=== PATIENT | female | born 1990 | race Hispanic/Latino ===

== ENCOUNTER 2017-01-19 07:52 | Day surgery (SDC) | payer OTHER ==
[2017-01-19 08:08] VITALS: BMI 23.7
[2017-01-19 08:35] VITALS: RESP 18
[2017-01-19 09:22] LABS: HEMATOCRIT 38.1 % (34.0-47.0); MEAN CELL VOLUME 87.5 fl (81.0-99.0); MEAN CORPUSCULAR HEMOGLOBIN 29.1 pg (27.0-31.0); MEAN CORPUSCULAR HGB CONC 33.3 g/dL (33.0-37.0); RED CELL DISTRIBUTION WIDTH 13.1 % (11.5-14.5); WHITE BLOOD COUNT 5.6 K/uL (4.8-10.8)
[2017-01-19] MEDS ORDERED: Bupivacaine 0.5% Inj(30mL) ONE (10:09)
[2017-01-19] MEDS ORDERED: Sterile Water 10 ML IV ONE (10:09)
[2017-01-19] MEDS ORDERED: Neostigmine Methylsulfate 3mg/3ml Syringe IV ONE (10:14)
[2017-01-19] MEDS ORDERED: Neostigmine Methylsulfate 2 MG/2 ML ML IV ONE (10:14)
[2017-01-19] MEDS ORDERED: Propofol 10 mg/ml Inj (20 ML) ONE ×2 (10:14→12:28)
[2017-01-19] MEDS ORDERED: Midazolam 2 MG/2 ML VIAL ONE (10:14)
[2017-01-19] MEDS ORDERED: Succinylcholine 200 mg/10 ml Inj IV ONE (10:14)
[2017-01-19] MEDS ORDERED: ePHEDrine 50 mg/ml Inj ONE (10:14)
[2017-01-19] MEDS ORDERED: Rocuronium 10 mg/ml (5 ml) ONE (10:14)
[2017-01-19] MEDS ORDERED: Lactated Ringer's 1,000 ML IV ONE ×2 (10:45→10:50)
[2017-01-19] MEDS ORDERED: Dexamethasone 4 mg/1 ml ONE (11:09)
[2017-01-19] MEDS ORDERED: Desflurane Inhalation Anesthetic Liq (240 ml) ONE (11:51)
[2017-01-19] MEDS ORDERED: HYDROmorphone 0.5 mg/0.5 ml ISec ONE (13:04)
[2017-01-19] MEDS ORDERED: Dexamethasone 4 mg/1 ml IVP PRN (14:14)
[2017-01-19] MEDS ORDERED: Lactated Ringer's 1,000 ML IV SCH (14:14)
[2017-01-19] MEDS ORDERED: Oxycodone/Acetaminophen 5/325 mg Tab PO PRN (14:14)
[2017-01-19] MEDS ORDERED: HYDROmorphone 0.5 mg/0.5 ml ISec IVP PRN (14:14)
[2017-01-19 15:05] VITALS: O2SAT 95
[2017-01-19] MEDS ORDERED: Oxycodone/Acetaminophen 5/325 mg Tab PO ONE (16:58)
[2017-01-19 17:42] VITALS: BP 111/61; PULSE 68; TEMP 97.8
--- NOTE | 2017-01-25 08:36 | OP ---
PROCEDURE DATE: 01/19/2017 SURGEON: Jamar Metz MD. OFFICE MACHINE INSTALLER: JONATHAN Lazo. PREOPERATIVE DIAGNOSES: Dysmenorrhea, dyspareunia, pelvic pain, pelvic endometriosis. POSTOPERATIVE DIAGNOSES: Dysmenorrhea, dyspareunia, pelvic pain; recurrent pelvic endometriosis, stage II/III. PROCEDURES PERFORMED: Cystoscopy with bilateral ureteral catheterization, retrograde injection of IC-Green into the right and left ureter, diagnostic hysteroscopy, laparoscopy, robotic da Walker excision of endometriosis. Bilateral ureterolysis. COMPLICATIONS: None. SAMPLES: Multiple samples of peritoneum containing endometriosis sent to pathology. DRAINS: Prater catheter. ESTIMATED BLOOD LOSS: Minimal. COMPLICATIONS: None. BRIEF HISTORY: The patient is a 26-year-old female who presented with a long history of dysmenorrhea, dyspareunia, pelvic pain. She had prior surgery for endometriosis in 2014 confirming endometriosis which was only ablated and not excised. Upon examination in the office, exquisite tenderness was elicited under direct examination as well as under ultrasonographic examination. The patient had failed medical treatment and, therefore, was advised to proceed with a repeat surgery with endometriotic excision. Prior to the surgery, consent for the procedure, identifying the cause of the surgery, likelihood of successful outcome and the alternative modalities of treatment and potential risks were freely discussed with ample opportunity for the patient to ask and receive and answer any questions, the patient was counseled and demonstrated an understanding of the potential risks of the procedure including, but not limited to, bleeding, hemorrhage, transfusion, infection, sepsis; injury to the urethra, the bladder, the ureter or kidney; uterine perforation, bowel perforation, infection, pelvic abscess and DVT. DESCRIPTION OF PROCEDURE: After consent was obtained, the patient was brought to the operating room and placed on the operating table in the supine position. An intravenous catheter was started and antibiotics were administered. After satisfactory anesthesia was induced, the patient was positioned in dorsal lithotomy position. The patient was placed in stable cardiac and pulmonary parameters into this position, and all areas of frontal pressure and injury were padded any. The external genitalia were sterilely prepped in a standard fashion as well as the abdomen. A timeout was performed. At this point, the cystoscope was inserted into the bladder under direct vision. Pancystoscopy was performed. Attention was placed to both ureteral offices which were normal in anatomic position. The left ureter orifice was catheterized with a 5-Dominican open-ended catheter. A solution of IC-Green was then injected with 4 mL in the left ureter, and the ureteral catheter was advanced into the distal ureter. The ureteral catheter was then removed. Attention was paid to the right ureteral orifice. At this point, a ureteral catheter was advanced to the level of the right distal ureter. An additional 4 mL of IC-Green were injected into the right ureter. The ureteral catheter was then removed. The bladder was then inspected and noted to be free of tumor, stones or bleeding sources. The hysteroscope was removed and at this point a hysteroscopy was performed. Attention was in the vaginal area where a speculum was placed in the vagina. The anterior lip of the cervix was grasped. The uterus was gently dilated and a hysteroscope was inserted in the uterine cavity revealing an absence of polyps , fibroids or any other anomaly and no evidence adenomyotic lesions. Both ureteral ostia were visualized. At this point, after placing a Valtchev uterine manipulator in the uterus, attention was on the abdomen. An incision was made in the umbilicus with a standard open laparoscopy technique. The abdominal cavity was entered in a blunt fashion. An 8 mm trocar that was blunt was inserted. The abdomen was insufflated. After insufflating the abdominal cavity, under direct visualization 3 additional trocars were inserted: Right lower quadrant, left mid quadrant, and right upper quadrant. At this point, the da Walker robot Xi was brought into the field and docked according to standard procedure. Findings Were as follows: There were areas of endometriosis present in the left pelvic sidewall. There were areas of endometriosis also on the right pelvic sidewall as well as a thickening of endometriotic appearing tissue and scarring in the right uterosacral area. Both ovaries appeared to be normal and free of endometriosis and both fallopian tubes also appeared to be normal. At this point, the actual procedure itself was started. The first attention was on the left hand side where was evidence of prior surgical scarring from the prior procedure. Fluorescent technology was used to identify the ureter. The peritoneum was then entered and incised and the retroperitoneal space was entered. A dissection was performed lateralizing the ureter in a [id number] fashion all the way down from the pelvic brim to uterine vessel. A progressive dissection was performed of the area of peritoneum containing endometriosis and it was excised. Additionally, there was an area in the left ovarian fossa that was also identified. The peritoneum again was progressively dissected off the vessels with great care not to injure any vessels, and this area was sent to pathology. Throughout the procedure fluorescent was used intermittently to identify the ureter and make sure that it was neither devascularized or damaged. At this point, attention was on the right side where similarly the peritoneum was then entered and again the retroperitoneal space was entered and with great care to avoid the vessels and ureter, again utilizing fluorescent technology, the ureter was progressively lateralized and a larger for the peritoneum was excised and sent to pathology for confirmation of disease and treatment. Additionally, there was great thickening in the right uterosacral area which was white and thickened and appeared to be under tension. This area was extensively excised, excising some fibromuscular and scar tissue as well as the part of the right uterosacral ligament and sent to pathology. All this was done with great care to avoid any damage to the underlying vessels and the urinary artery. Additionally, an area of endometriosis was excised from the posterior aspect of the cervix. At this point, the rest of the pelvis was inspected. The appendix was inspected appearing to be normal. The anterior bladder was inspected, appeared to be normal. It was checked for hemostasis that appeared to be excellent. There was no damage to vessel, the bowels, the ureters or any other vessels. The da Walker robot was then undocked. The abdomen was desufflated and the trocars were removed. The abdominal cavity was closed in layers with 0 PDS for the fascia and 4-0 Monocryl and Dermabond for the skin. The instruments were removed also from the vagina and the cervix was inspected, appearing to be having a very small area of bleeding, which was cauterized utilizing a Silvadene stick. At this point, hemostasis was excellent. The patient was woken up and taken to recovery in excellent condition. Please notice that given the complexity of the procedure, the role of Heather Macias, a physician hr assistant with 10 years of experience, was extremely essential as it would have been impossible to perform this procedure alone for me. She was present throughout the procedure. Jamar Metz MD cc: [id number] TT: 01/24/2017 14:34:13 mn NOHEMI
== END 2017-01-19 17:45 | disposition home or self-care (01) ==
LOC: H.OPSURG 07:52
PROVIDERS: ATTEND Obstetrics & Gynecology Reproductive Endocrinology
DX: R10.2 Pelvic and perineal pain (principal); N94.6 Dysmenorrhea, unspecified; N80.3 Endometriosis of pelvic peritoneum; N80.0 Endometriosis of uterus

== ENCOUNTER 2017-06-12 10:13 | Emergency (ER) | payer OTHER ==
[2017-06-12 10:14] VITALS: BMI 23.7
[2017-06-12 10:42] VITALS: BP 138/86; PULSE 75; RESP 17; TEMP 97; O2SAT 100
--- NOTE | 2017-06-12 11:12 | ED PDOC ---
HPI: Dental Pain/Injury Time Seen by Provider: 06/12/17 10:32 Chief Complaint (Nursing): Dental Pain Chief Complaint (Provider): Jaw pain History Per: Patient Additional Complaint(s): Pt is a 26 yo female,PMH of Migraine Headaches, presented to the ED with complaints of right sided jaw pain since Monday after being lifted up by a friend and dropped resulting in her hitting her chin on the floor. Pt states the pain has not gone away and she has difficulty opening and closing her mouth , pain is worse to right jaw. Pt took Aleve yesterday Past Medical History Reviewed: Nursing Documentation, Vital Signs Vital Signs: Last Vital Signs Temp 97.0 F L 06/12/17 10:38 Pulse 75 06/12/17 10:38 Resp 17 06/12/17 10:38 BP 138/86 06/12/17 10:38 Pulse Ox 100 06/12/17 10:38 - Medical History PMH: Migraine Denies: Chronic Kidney Disease - Family History Family History: States: Unknown Family Hx - Living Arrangements Living Arrangements: With Family - Social History Current smoker - smoking cessation education provided: No Alcohol: Social Drugs: Denies - Home Medications Home Medications: Ambulatory Orders Medication Instructions Recorded Control 1 tab PO DAILY 01/19/17 oxyCODONE/Acetaminophen [Percocet 1 tab PO Q4 PRN #20 tab 01/19/17 5/325 mg Tab] Cyclobenzaprine [Cyclobenzaprine 10 mg PO TID #20 tab 06/12/17 HCl] Ibuprofen [Motrin] 600 mg PO Q6 #20 tab 06/12/17 - Allergies Allergies/Adverse Reactions: Allergies Allergy/AdvReac Type Severity Reaction Status Date / Time Penicillins Allergy RASH Verified 08/01/16 15:10 Review of Systems ROS Statement: Except As Marked, All Systems Reviewed And Found Negative Musculoskeletal: Positive for: Other (Jaw pain) Physical Exam - Reviewed Nursing Documentation Reviewed: Yes Vital Signs Reviewed: Yes - Physical Exam Appears: Positive for: Well, Non-toxic, No Acute Distress Head Exam: Positive for: ATRAUMATIC, NORMAL INSPECTION, NORMOCEPHALIC Skin: Positive for: Normal Color, Warm, DRY Eye Exam: Positive for: EOMI, Normal appearance, PERRL ENT: Positive for: Normal ENT Inspection, Other ((+) submental tenderness, no ecchymosis or edema. (+) right TMJ tenderness. (+) FROM) Neck: Positive for: Normal, Painless ROM Cardiovascular/Chest: Positive for: Regular Rate, Rhythm Respiratory: Positive for: CNT, Normal Breath Sounds Gastrointestinal/Abdominal: Positive for: Normal Exam, Bowel Sounds, Soft Back: Positive for: Normal Inspection Extremity: Positive for: Normal ROM Neurologic/Psych: Positive for: Alert, Oriented - ECG O2 Sat by Pulse Oximetry: 100 Medical Decision Making Medical Decision Making: XR: NAD, as read by KANIKA Medicated with Toradol IM Doing well on re-eval, advised to take medications as directed. Warm compresses. soft food diet until symptoms resolve Disposition - Clinical Impression Clinical Impression: Contusion of jaw, TMJ arthralgia - Patient ED Disposition Is Patient to be Admitted: No - Disposition Disposition: Routine/Home Disposition Time: 12:08 Condition: STABLE Prescriptions: Cyclobenzaprine [Cyclobenzaprine HCl] 10 mg PO TID #20 tab Ibuprofen [Motrin] 600 mg PO Q6 #20 tab Instructions: Temporomandibular Disorder (ED) Forms: [facility] (Kiswahili) - POA Present On Arrival: None
--- NOTE | 2017-06-12 13:53 | RAD ---
PROCEDURE: Mandible HISTORY: fell on [place] COMPARISON: None TECHNIQUE: Standard protocol for this study/examination. FINDINGS: No evidence of mandibular fracture or other pathologic process. IMPRESSION: No acute findings related to/accounting for the clinical presentation. Please note: No preliminary report/ innterpretation of this examination provided by emergency department personnel.
== END 2017-06-12 12:16 | disposition home or self-care (01) ==
LOC: H.ER 10:13
DX: S00.83XA Contusion of other part of head, initial encounter (principal); W19.XXXA Unspecified fall, initial encounter; Y92.89 Other specified places as the place of occurrence of the external cause; Z88.0 Allergy status to penicillin
CPT/HCPCS: 70110; 81025; 96372; 99281; J1885